=== PATIENT | male | born 1970 | race Caucasian/White ===

== ENCOUNTER 2017-11-02 23:03 | Emergency (ER) | payer BC, OTHER ==
[~2017-11-02] VITALS: Ht 188 cm; Wt 97.2 kg
[2017-11-02 23:19] VITALS: TEMP 36.4; Ht 188 cm; Wt 97.2 kg
[2017-11-03] MEDS ORDERED: LIDOCAINE 1% BUFFERED INJ 20 ML VIAL INFIL ONE
[2017-11-03] MEDS ORDERED: CEFTRIAXONE SOD 350MG/ML 1 GM VIAL IM ONE
[2017-11-03 00:54] VITALS: BP 141/76
[2017-11-03] MEDS ORDERED: IBUP-1451 PO (01:56)
[2017-11-03] MEDS ORDERED: CEPH500C PO (01:56)
[2017-11-03] MEDS ORDERED: NORCO 5/325MG HOME PACK PO ONE (02:00)
[2017-11-03] MEDS ORDERED: IBUPROFEN 800 MG TAB PO ONE (02:00)
[2017-11-03] MEDS ORDERED: CEPHALEXIN 500MG HOME PACK 1 EA BTL PO ONE (02:00)
[2017-11-03 02:14] VITALS: PULSE 78; O2SAT 99
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
== END 2017-11-03 02:14 | disposition home or self-care (01) ==
LOC: C.EDB 23:04 → C.EDC 11-03 02:14
DX: T14.8XXA Other injury of unspecified body region, initial encounter (principal); S61.011A Laceration without foreign body of right thumb without damage to nail, initial encounter; Y08.89XA Assault by other specified means, initial encounter